=== PATIENT | male | born 1980 ===

== ENCOUNTER 2021-01-05 14:07 | Emergency (ER) | payer SELFPAY ==
[~2021-01-05] VITALS: Ht 167.6 cm; Wt 104.0 kg
[2021-01-05 14:10] VITALS: BP 127/86
--- NOTE | 2021-01-05 14:26 | NUR ---
PT WALKED BACK FROM TRIAGE WITHCHIEF COMPLAINT OF LOW BACK PAIN SINCE YESTERDAY. DENIES NUMBESS AND TINGLING.
[2021-01-05] MEDS ORDERED: ONDANSETRON ODT 4 MG PO ONE (14:30)
[2021-01-05] MEDS ORDERED: OXYcodone/APAP 5/325MG TABLET PO ONE (14:30)
[2021-01-05] MEDS ORDERED: CYCLOBENZAPRINE 10 MG TABLET PO ONE (14:30)
[2021-01-05] MEDS ORDERED: KETOROLAC 30 MG/1 ML IM ONE (14:30)
[2021-01-05] MEDS ORDERED: KETOROLAC 30 MG/1 ML ONE (14:39)
[2021-01-05] MEDS ORDERED: ONDANSETRON ODT 4 MG ONE (14:39)
[2021-01-05] MEDS ORDERED: OXYcodone/APAP 5/325MG TABLET ONE (14:40)
[2021-01-05] MEDS ORDERED: CYCLOBENZAPRINE 10 MG TABLET ONE (14:41)
--- NOTE | 2021-01-05 14:42 | NUR ---
PT TO XRAY AT THIS TIME.
--- NOTE | 2021-01-05 15:05 | NUR ---
pt back from xr, medicated per order, tolerated well. awaiting xr results and dispo.
--- NOTE | 2021-01-05 15:23 | NUR ---
PT EDUCATED ON DISCHARGE INSTRUCTIONS, VERBALIZED UNDERSTANDING. AMBULATORY TO DC DESK WITH STEADY GAIT.
== END 2021-01-05 17:59 | disposition home or self-care (01) ==
LOC: ED 17:56
DX: S39.012A Strain of muscle, fascia and tendon of lower back, initial encounter (principal); X58.XXXA Exposure to other specified factors, initial encounter; Y93.89 Activity, other specified; Y92.89 Other specified places as the place of occurrence of the external cause; Y99.8 Other external cause status
CPT/HCPCS: 72110; 96372; 99284; J1885; Q0162